=== PATIENT | female | born 1995 | race Caucasian/White ===

== ENCOUNTER 2017-06-24 12:06 | Emergency (ER) | payer OTHER ==
[2017-06-24 13:40] LABS: ABS Basophils 0 10^3/ul (0-0.2); ABS Eosinophils 0 10^3/ul (0-0.6); ABS Lymphocytes 1.4 10^3/ul (1.0-4.8); ABS Monocytes 0.3 10^3/ul (0-0.8); ABS Neutrophils 7.5 10^3/ul (1.5-7.7); ABS Nucleated RBC 0 10^3/ul; Eosinophil % 0.4 % (0-6); Hematocrit 40 % (35-47); Hemoglobin 13.2 g/dl (12.0-16.0); Lymphocyte % 14.7 % (25-47); Mean Corpuscular HGB Conc 33 g/dl (31-36); Mean Corpuscular Hemoglobin 28 pg (27-31); Mean Corpuscular Volume 84 fL (80-97); Mean Platelet Volume 9 um3 (7.4-10.4); Nucleated Red Blood Cells % 0; Platelet Count 264 10^3/ul (150-450); Red Blood Count 4.76 10^6/ul (4.0-5.4); Red Cell Distribution Width 15 % (10.5-15); White Blood Count 9.2 10^3/ul (3.5-10.8)
[2017-06-24 13:46] LABS: EGFR Non-African American 83.6 (>60)
--- NOTE | 2017-06-24 13:54 | RAD ---
CLINICAL HISTORY: Left flank pain COMPARISON: None TECHNIQUE: Multiple contiguous axial CT scans were obtained of the abdomen and pelvis, without intravenous contrast enhancement. Coronal and sagittal multiplanar reformations are submitted for review. Oral contrast was not administered. FINDINGS: The study is limited by the lack of intravenous contrast. This limits evaluation of the solid organs and vasculature. LUNG BASES: The lung bases are clear. LIVER: The liver is normal in shape, size, contour, and attenuation. BILE DUCTS: There is no intrahepatic or extrahepatic biliary dilatation. GALLBLADDER: The gallbladder is normal, without pericholecystic inflammatory change. PANCREAS: The pancreas is normal, without mass or ductal dilatation. SPLEEN: Normal in size and appearance. UPPER GI TRACT: Evaluation of the gastrointestinal tract is limited by incomplete gastric distention. The upper GI tract is unremarkable. SMALL BOWEL AND MESENTERY: The small bowel is normal in contour, course, and caliber. There is no obstruction or dilatation. COLON: The colon is normal in contour, course, caliber. There is no pericolonic inflammatory change. ADRENALS: Normal bilaterally. KIDNEYS: There is a 0.2 cm calculus of the proximal left ureter. There is mild hydroureter. BLADDER: The bladder is collapsed and is not well evaluated. PELVIC ORGANS: 90 is noted. AORTA: The aorta is normal. IVC: Unremarkable LYMPH NODES: There is no lymphadenopathy by size criteria. ABDOMINAL WALL: There is no evidence for abdominal wall hernia. BONES AND SOFT TISSUES: Unremarkable OTHER: None IMPRESSION: 0.2 CM CALCULUS OF THE PROXIMAL LEFT URETER WITH MILD HYDROURETER
[2017-06-24] MEDS ORDERED: NS 0.9% 1000 ML* 1,000 ML IV ONE (14:15)
[2017-06-24] MEDS ORDERED: Ondansetron INJ* 2 MG/ML VIAL IV ONE (14:15)
[2017-06-24] MEDS ORDERED: Ketorolac INJ* 30 MG/ML 1 ML VIAL IV PUSH ONE (14:15)
[2017-06-24 16:41] LABS: Urine Appearance Cloudy; Urine Blood 3+ (Negative); Urine Color Yellow; Urine Ketones 1+ (Negative); Urine Protein 1+(30 mg/dL) (Negative); Urine Urobilinogen Negative (Negative)
[2017-06-24 16:55] VITALS: BP 114/70
--- NOTE | 2017-06-26 08:21 | ED ---
Emery Marcum Angela, scribed for Ace Soliz MD on 06/24/17 at 1409 . Abdominal Pain/Female - HPI Summary HPI Summary: This pt is a 21 y/o female presenting to [facility] c/o left flank pain since today. Pt reports she noticed her urine was orange 3 days ago but thought it was because she ate too many carrots. Last night, pt had hematuria. Pt went to [facility] today and gave a urine sample. After she gave the sample she notes she began to have left sided flank pain 2 hours [employer]. Pt rates her pain 2/10 in severity. She states her pain waxes and wanes. At its worse her pain is rated 8/10 in severity. She reports associated nausea. Denies vomiting. LMP: no period, pt has IUD. - History of Current Complaint Chief Complaint: EDFlankPain Stated Complaint: ABD PAIN/VOMITING Time Seen by Provider: 06/24/17 13:50 Hx Obtained From: Patient Onset/Duration: Lasting Hours, Still Present Timing: Hours Severity Currently: Moderate Pain Intensity: 4 Pain Scale Used: 0-10 Numeric Location: Flank - left Radiates: No Character: Sharp - and stabbing Aggravating Factor(s): Nothing Alleviating Factor(s): Nothing Associated Signs and Symptoms: Positive: Nausea. Negative: Vomiting Allergies/Adverse Reactions: Allergies Allergy/AdvReac Type Severity Reaction Status Date / Time No Known Allergies Allergy Verified 06/24/17 12:19 PMH/Surg Hx/FS Hx/Imm Hx Endocrine/Hematology History: Denies: Hx Diabetes Cardiovascular History: Denies: Hx Hypertension Infectious Disease History: No Infectious Disease History: Denies: Traveled Outside the [place] in Last 30 Days - Family History Known Family History: Positive: Hypertension, Diabetes Negative: Cardiac Disease Review of Systems Negative: Fever, Chills ENT: Negative Cardiovascular: Negative Respiratory: Negative Positive: Nausea. Negative: Vomiting Positive: flank pain - left Skin: Negative Neurological: Negative All Other Systems Reviewed And Are Negative: Yes Physical Exam - Summary Physical Exam Summary: VITAL SIGNS: Reviewed. GENERAL: Patient is an obese female who is lying comfortable in the stretcher. Patient is not in any acute distress. HEAD AND FACE: Normocephalic and atraumatic. EYES: PERRLA, EOMI x 2, No injected conjunctiva. EARS: Hearing grossly intact. Ear canals and tympanic membranes are WNL. MOUTH: Oropharynx within normal limits. NECK: Supple, trachea is midline, no adenopathy, no JVD. CHEST: Symmetric, no tenderness at palpation LUNGS: Clear to auscultation bilaterally. No wheezing or crackles. CVS: RRR, S1 and S2 present, no murmurs or gallops appreciated. ABDOMEN: Soft. No signs of distention. Positive bowel sounds. No rebound no guarding, and no masses palpated. No abdominal bruit or pulsations. Left flank pain. EXTREMITIES: FROM in all major joints, no edema, no cyanosis or clubbing. NEURO: Alert and oriented x 3. No acute neurological deficits. Speech is normal. SKIN: Dry and warm Triage Information Reviewed: Yes Vital Signs On Initial Exam: Initial Vitals Temp Pulse Resp BP Pulse Ox 97.7 F 71 20 138/81 99 06/24/17 12:19 06/24/17 12:19 06/24/17 12:19 06/24/17 12:19 06/24/17 12:19 Vital Signs Reviewed: Yes Diagnostics - Vital Signs Vital Signs Temp Pulse Resp BP Pulse Ox 06/24/17 12:19 97.7 F 71 20 138/81 99 - Laboratory Lab Results: Lab Results 06/24/17 06/24/17 06/24/17 Range/Units 13:09 13:09 13:09 WBC 9.2 (3.5-10.8) 10^3/ul RBC 4.76 (4.0-5.4) 10^6/ul Hgb 13.2 (12.0-16.0) g/dl Hct 40 (35-47) % MCV 84 (80-97) fL MCH 28 (27-31) pg MCHC 33 (31-36) g/dl RDW 15 (10.5-15) % Plt Count 264 (150-450) 10^3/ul MPV 9 (7.4-10.4) um3 Neut % (Auto) 81.4 (38-83) % Lymph % (Auto) 14.7 L (25-47) % [place] % (Auto) 3.3 (1-9) % Eos % (Auto) 0.4 (0-6) % Baso % (Auto) 0.2 (0-2) % Absolute Neuts (auto) 7.5 (1.5-7.7) 10^3/ul Absolute Lymphs (auto) 1.4 (1.0-4.8) 10^3/ul Absolute Monos (auto) 0.3 (0-0.8) 10^3/ul Absolute Eos (auto) 0 (0-0.6) 10^3/ul Absolute Basos (auto) 0 (0-0.2) 10^3/ul Absolute Nucleated RBC 0 10^3/ul Nucleated RBC % 0 Sodium 133 (133-145) mmol/L Potassium 3.8 (3.5-5.0) mmol/L Chloride 102 (101-111) mmol/L Carbon Dioxide 22 (22-32) mmol/L Anion Gap 9 (2-11) mmol/L BUN 10 (6-24) mg/dL Creatinine 0.85 (0.51-0.95) mg/dL Est GFR ( Amer) 107.6 (>60) Est GFR (Non-Af Amer) 83.6 (>60) BUN/Creatinine Ratio 11.8 (8-20) Glucose 119 H (70-100) mg/dL Lactic Acid 0.9 (0.5-2.0) mmol/L Calcium 9.3 (8.6-10.3) mg/dL Total Bilirubin 0.20 (0.2-1.0) mg/dL AST 13 (13-39) U/L ALT 9 (7-52) U/L Alkaline Phosphatase 48 (34-104) U/L C-Reactive Protein 9.55 H (< 5.00) mg/L Total Protein 7.1 (6.4-8.9) g/dL Albumin 4.3 (3.2-5.2) g/dL Globulin 2.8 (2-4) g/dL Albumin/Globulin Ratio 1.5 (1-3) Lipase < 10 L (11.0-82.0) U/L Beta HCG, Quant < 0.60 mIU/mL Result Diagrams: 06/24/17 13:09 06/24/17 13:09 Lab Statement: Any lab studies that have been ordered have been reviewed, and results considered in the medical decision making process. - CT Abdomen/pelvis CT CT Interpretation: Positive (See Comments) - IMPRESSION: 0.2 CM calculus of the proximal left ureter with mild hydroureter. Dr. Soliz has reviewed this radiology report. CT Interpretation Completed By: Radiologist Abdominal Pain Fem Course/Dx - Course Course Of Treatment: This pt is a 21 y/o female presenting to [facility] c/o left flank pain since today. Pt reports she noticed her urine was orange 3 days ago but thought it was because she ate too many carrots. Last night, pt had hematuria. Pt went to [facility] today and gave a urine sample. After she gave the sample she notes she began to have left sided flank pain 2 hours [employer]. Pt rates her pain 2/10 in severity. She states her pain waxes and wanes. At its worse her pain is rated 8/10 in severity. She reports associated nausea. Denies vomiting. LMP: no period, pt has IUD. Test results without any significant abnormalities except of CRP of 9.55. Urinalysis is negative for UTI. Abdomen/Pelvis CT shows 0.2 CM calculus of the proximal left ureter with mild hydroureter. In the ED course, the pt was given IV fluids and Toradol for uretholiathisis, and her symptoms resolved. Pt has been asymptomatic after these medications. Therefore she will be discharged home with follow up from her PCP. Pt is hemodynamically stable, alert and oriented x3. - Diagnoses Differential Diagnosis: Positive: Ovarian Cyst, Renal Colic, Urinary Tract Infection Provider Diagnoses: Kidney stone, Renal colic Discharge - Discharge Plan Condition: Stable Disposition: HOME Patient Education Materials: Kidney Stones (ED), Renal Colic (ED) Referrals: [facility] - [facility] RINCON [Primary Care Provider] - Additional Instructions: Please follow up with your primary care provider. RETURN TO THE ED FOR ANY WORSENING SYMPTOMS. The documentation as recorded by the Emery mesa Angela accurately reflects the service I personally performed and the decisions made by , Ace Soliz MD.
== END 2017-06-24 16:54 | disposition home or self-care (01) ==
LOC: ED 12:06
DX: N20.0 Calculus of kidney (principal); N23 Unspecified renal colic; R11.0 Nausea
CPT/HCPCS: 36415; 74176; 80053; 81003; 81015; 83605; 83690; 84702; 85025; 86140; 87086; 96374; 96375; 99283; J1885; J2405

== ENCOUNTER 2017-08-11 22:13 | Emergency (ER) | payer OTHER ==
--- NOTE | 2017-08-11 23:06 | ED ---
GI/ HPI - HPI Summary HPI Summary: 21-year-old female presents with rectal pain for the past week. States she was seen by told that she had an anal fissure. She states she has been using ibuprofen for the pain and Colace for constipation. She states though she has not been able to have a bowel movement since . She states she feels like she has ago but due to pains is unable to. She denies any history or family history of ulcerative colitis or Crohn's. She states she has had occasional bleeding around her stool. she denies any pus. She denies any fevers. She denies any nausea vomiting. She has no medical conditions. - History of Current Complaint Chief Complaint: EDUrogenitalProblems Time Seen by Provider: 08/11/17 22:21 Stated Complaint: RECTAL PAIN Pain Intensity: 2 - Allergy/Home Medications Allergies/Adverse Reactions: Allergies Allergy/AdvReac Type Severity Reaction Status Date / Time No Known Allergies Allergy Verified 08/11/17 22:18 PMH/Surg Hx/FS Hx/Imm Hx Endocrine/Hematology History: Denies: Hx Diabetes Cardiovascular History: Denies: Hx Hypertension Infectious Disease History: No Infectious Disease History: Denies: Traveled Outside the [place] in Last 30 Days - Family History Known Family History: Positive: Hypertension, Diabetes Negative: Cardiac Disease - Social History Alcohol Use: None Substance Use Type: Reports: None Smoking Status (MU): Never Smoked Tobacco Review of Systems Negative: Fever Negative: Chest Pain Negative: Shortness Of Breath Positive: Other - rectal pain All Other Systems Reviewed And Are Negative: Yes Physical Exam Triage Information Reviewed: Yes Vital Signs On Initial Exam: Initial Vitals Temp Pulse Resp BP Pulse Ox 97.6 F 115 20 141/82 99 08/11/17 22:15 08/11/17 22:15 08/11/17 22:15 08/11/17 22:15 08/11/17 22:15 Vital Signs Reviewed: Yes Appearance: Positive: Well-Appearing Skin: Positive: Warm, Dry Head/Face: Positive: Normal Head/Face Inspection Eyes: Positive: Normal, Conjunctiva Clear Respiratory/Lung Sounds: Positive: Clear to Auscultation, Breath Sounds Present Cardiovascular: Positive: Normal, RRR Abdomen Description: Positive: Nontender, Soft, Other: - anal fissure present, normal rectal tone Bowel Sounds: Positive: Present Musculoskeletal: Positive: Normal Neurological: Positive: Normal Psychiatric: Positive: Normal Diagnostics - Vital Signs Vital Signs Temp Pulse Resp BP Pulse Ox 08/11/17 22:25 102 99 08/11/17 22:24 138/63 08/11/17 22:15 97.6 F 115 20 141/82 99 - Laboratory Lab Statement: Any lab studies that have been ordered have been reviewed, and results considered in the medical decision making process. - Radiology abd Xray Interpretation: Positive (See Comments) - stool throughout colon Radiology Interpretation Completed By: ED Physician JEREMY Course/Dx - Course Course Of Treatment: 21-year-old female presents with rectal pain for the past week. States she was seen by told that she had an anal fissure. She states she has been using ibuprofen for the pain and Colace for constipation. She states though she has not been able to have a bowel movement since . She states she feels like she has ago but due to pains is unable to. She denies any history or family history of ulcerative colitis or Crohn's. She states she has had occasional bleeding around her stool. she denies any pus. She denies any fevers. She denies any nausea vomiting. She has no medical conditions. on exam has small anal fissure present. normal rectal tone. xray shows constipation. will treat with mg citrate here and have continue with miralax. will prescribe dibucaine for pain. patuent understand and agrees with plan. - Diagnoses Differential Diagnoses - Female: Constipation, Hemorrhoids, Other - anal fissure Provider Diagnoses: Anal fissure Discharge - Discharge Plan Condition: Good Disposition: HOME Prescriptions: Dibucaine 1% OINT* [Nupercainal 1% oint*] 1 % EX QID #1 oin Polyethylene Glycol 3350* [Miralax*] 17 gm PO DAILY #20 packet Patient Education Materials: Anal Fissure (ED) Referrals: [facility] - [facility] RINCON [Primary Care Provider] - Additional Instructions: Perform sitz bath twice a day Take miralax once a day, drink plenty of fluids Apply dibucaine up to four times a day sparingly Take Tylenol or ibuprofen for pain every 6 hours Return to ED if develop any new or worsening symptoms
[2017-08-11] MEDS ORDERED: Magnesium CITRATE* 300 ML BTL PO ONE (23:16)
[2017-08-11 23:31] VITALS: BP 116/63
[2017-08-11] MEDS ORDERED: Dibucaine 1% 28.35 GM TUBE PR SCH (23:45)
--- NOTE | 2017-08-12 07:44 | RAD ---
INDICATION: Abdomen COMPARISON: CT June 24, 2017 TECHNIQUE: A single view of the abdomen is submitted. FINDINGS: Bones: There are no acute bony findings. Soft tissues: The soft tissues appear normal. The psoas margins are sharp. Bowel gas pattern: Normal Calcifications: There is no radiopaque calculus. Other: There is an IUD IMPRESSION: NO DIAGNOSTIC ABNORMALITIES. PLEASE REFER ALSO TO CT DATED JUNE 24, 2017
== END 2017-08-11 23:33 | disposition home or self-care (01) ==
LOC: ED 22:13
DX: K60.2 Anal fissure, unspecified (principal); K62.89 Other specified diseases of anus and rectum
CPT/HCPCS: 74019; 99283; A9270-GY